=== PATIENT | female | born 1995 | race Caucasian/White ===

== ENCOUNTER 2019-07-25 10:17 | Emergency (ER) | payer OTHER, SELFPAY ==
--- NOTE | ~2019-07-25 | XR_ITS ---
EXAMINATION: XR ankle LT min 3V DATE: 07/25/2019 10:43 INDICATION: Left ankle pain and swelling. TECHNIQUE: 4 views of left ankle were obtained. COMPARISON: Left ankle radiographs 12/01/2018 FINDINGS: Bone alignment is normal. No fracture. Joint spaces are well maintained. There is ankle sof t tissue swelling. IMPRESSION: 1. No fracture. Reviewed, dictated and finalized at location A. ICAL COORDINATOR IMPRESSION: 1. No fracture.
[2019-07-25 10:28] VITALS: BP 135/77; PULSE 120; RESP 16; TEMP 37.5; O2SAT 98
--- NOTE | 2019-07-25 10:51 | ED.LOWEXIN ---
HPI - Extremity Injury (Lower) General Chief Complaint: Extremity Injury, Lower Stated Complaint: lt ankle injury/fever/cough/congestion Time Seen by Provider: 07/25/19 10:52 Source: patient and RN notes reviewed Mode of arrival: ambulatory Limitations: no limitations History of Present Illness HPI Narrative: 22-year-old female presents with multiple complaints. She reports a left ankle injury. Reports she was at a trampoline park yesterday and twisted her left ankle. Reports swelling, pain with weightbearing. Reports she has been taking ibuprofen and using crutches. In a separate complaint she reports fever, chills, body ache, cough, nasal congestion, rhinorrhea that started Friday night. MD complaint: ankle injury Related Data Home Medications Medication Instructions Recorded Confirmed norethindrone-ethin estradiol tablet 07/25/19 [Nortrel (28)] spironolactone 07/25/19 Allergies Allergy/AdvReac Type Severity Reaction Status Date / Time No Known Allergies Allergy Unverified 12/01/18 22:55 Review of Systems Review of Systems: Narrative: CONSTITUTIONAL: Reports malaise, chills, sweats, or fever. EYES: Denies visual changes, redness, or discharge. ENT: Reports rhinorrhea, congestion. Denies sinus pain, otalgia or sore throat. CARDIOVASCULAR: Denies chest pain, palpitations, or edema. RESPIRATORY: Reports cough. Denies dyspnea. GASTROINTESTINAL: Denies abdominal pain, nausea, vomiting, diarrhea, bloody, or mucous stools. SKIN: Reports left ankle swelling and redness MUSCULOSKELETAL: Left ankle and digits of left foot have normal strength and sensation, normal range of motion. 5/5 strength with ankle and digit flexion and extension. Moderate lateral edema with mild ecchymosis. Normal sensation with sensitivity to light touch and pain. No open wounds, no skin tenting, no devitalized tissue or atrophy, no trophic changes, no obvious deformity, alignment normal, no point tenderness, nearby joints and structures intact. Distal pulses palpable and equal bilaterally, skin warm, dry, pink. Capillary refill less than 3 seconds. NEUROLOGIC: Denies numbness, weakness, or headache. PSYCHIATRIC: Denies anxiety or depression. GENERAL: Well-appearing, well-nourished, and in no acute distress. HEAD: Normocephalic, atraumatic. EYES: PERRLA, conjunctivae clear NECK: Supple. CHEST: Speaks in full sentences. No respiratory distress. HEART: Regular rate and rhythm. Normal and equal peripheral pulses. EXTREMITIES: SKIN: Warm, dry, no rash. NEURO: Alert and oriented x3. PSYCH: Normal mood and affect All systems reviewed & are unremarkable except as noted in HPI and below PMFSH Comments At time of signature, agree with nursing past medical, surgical, social and family history. There is no relevant family history pertinent to the presenting complaint Exam Narrative: Exam Narrative: GENERAL: Well-appearing, well-nourished, and in no acute distress. HEAD: Normocephalic, atraumatic. EYES: PERRLA, conjunctivae clear NECK: Supple. CHEST: Speaks in full sentences. No respiratory distress. HEART: Regular rate and rhythm. Normal and equal peripheral pulses. EXTREMITIES: Left has normal strength and sensation, no edema, normal range of motion. 5/5 strength with [xxx] flexion and extension. Normal sensation with sensitivity to light touch and pain. No open wounds, no skin tenting, no devitalized tissue or atrophy, no trophic changes, no ecchymosis, no obvious deformity, alignment normal, no point tenderness, nearby joints and structures intact. Distal pulses palpable and equal bilaterally, skin warm, dry, pink. Capillary refill less than 3 seconds. SKIN: Warm, dry, no rash. NEURO: Alert and oriented x3. PSYCH: Normal mood and affect Course Course Emergency Course: Patient is aware of diagnosis, understands and agrees to treatment plan. Anticipatory guidance given. Patient agrees to follow-up as directed and is aware of reasons to seek ca
== END 2019-07-25 11:22 | disposition home or self-care (01) ==
PROVIDERS: Emergency Provider Nurse Practitioner
DX: S93.402A Sprain of unspecified ligament of left ankle, initial encounter (principal); S96.912A Strain of unspecified muscle and tendon at ankle and foot level, left foot, initial encounter; X50.9XXA Other and unspecified overexertion or strenuous movements or postures, initial encounter; Y93.44 Activity, trampolining; J10.1 Influenza due to other identified influenza virus with other respiratory manifestations
CPT/HCPCS: 73610; 87804; 99213; G0463

== ENCOUNTER 2025-04-01 14:47 | Outpatient (CLI) | payer OTHER, SELFPAY ==
--- NOTE | ~2025-04-01 | US_ITS ---
EXAMINATION: US OB /maternal detail DATE: 04/01/2025 16:08 INDICATION: screening TECHNIQUE: Multiple obstetric sonographic images performed. FINDINGS: There is a single living fetus in vertex presentation. The placenta is anterior with caudal margin 4.0 cm from the internal cervical os. Amniotic fluid volume is subjectively normal. heart rate of 141 beats per minute. The following anatomy was identified as normal: Ventricles, choroid plexus, falx and cava septum pellucidum Cerebellum and cisterna magna Nuchal fold Upper lip Spine in transverse plane. Sagittal images of the spine were not obtained. Heart Diaphragm Stomach Kidneys Bladder 3 vessel cord and cord insertion Bilateral upper and lower extremities including hands and feet The following biometric data were obtained: BPD: 4.5 cm -> 19 weeks 5 days Head circumference: 17.0 cm -> 19 weeks 4 days Abdominal circumference: 14.0 cm -> 19 weeks 3 days Femur length: 2.9 cm -> 19 weeks 0 days These measurements are concordant. Head circumference to abdominal circumference ratio: 1.21 (normal range 1.08-1.26). Estimated weight: 284 g (+/-) 43 g. or 10 oz. (+/-) 2 oz. IMPRESSION: 1. Single living fetus with vertex presentation with heart rate of 141 bpm. 2. Gestational age by ultrasound of 19 weeks 3 day(s) (+/-) 1 week 3 day(s) with ultrasound estimated date of delivery (ANDREA) of 08/23/2025. Estimated weight is th percentile by Hadlock criteria when is used as the ANDREA. Please correlate with clinical information or earlier ultrasounds for most accurate ANDREA. 3. Sagittal views of the spine were not obtained. Otherwise normal survey. Reviewed, dictated and finalized at location A. RONMENTAL ENGINEERING TECHNICIAN IMPRESSION: 1. Single living fetus with vertex presentation with heart rate of 141 b pm. 2. Gestational age by ultrasound of 19 weeks 3 day(s) (+/-) 1 week 3 day(s) w ith ultrasound estimated date of delivery (ANDREA) of 08/23/2025. Estimated w eight is th percentile by Hadlock criteria when is used as the ANDREA. Please ryne elate with clinical information or earlier ultrasounds for most accurate ANDREA. 3. Sagittal views of the spine were not obtained. Otherwise normal survey .
== END 2025-04-01 14:48 | disposition home or self-care (01) ==
LOC: MICIMG 14:49
PROVIDERS: PCP Obstetrics & Gynecology; Visit Provider Obstetrics & Gynecology
DX: Z36.9 Encounter for antenatal screening, unspecified (principal); Z3A.19 19 weeks gestation of pregnancy
CPT/HCPCS: 76805

== ENCOUNTER 2025-04-29 12:56 | Outpatient (CLI) | payer OTHER, SELFPAY ==
--- NOTE | ~2025-04-29 | US_ITS ---
US OB follow up 04/29/2025 13:16 Indication: Follow-up ultrasound for survey Procedure: Limited obstetrical ultrasound for follow-up survey of the spine Comparison: Ultrasound dated 04/01/2025 Findings: There is a single living intrauterine in breech presentation. heart rate 147 BPM. Placenta is anterior without previa. Distance to the cervix is 5.7 cm. Cervical length 3.8 cm. Amniotic fluid subjectively normal. Spine is normal. Impression: 1: Normal survey of the spine. Reviewed, dictated and finalized at location I. GRAPHIC TYPEWRITER OPERATOR Impression: 1: Normal survey of the spine.
== END 2025-04-29 12:57 | disposition home or self-care (01) ==
LOC: MICIMG 12:57
PROVIDERS: PCP Obstetrics & Gynecology; Visit Provider Obstetrics & Gynecology
DX: Z36.2 Encounter for other antenatal screening follow-up (principal); Z3A.00 Weeks of gestation of pregnancy not specified
CPT/HCPCS: 76816